=== PATIENT | male | born 1985 | race Two or more races ===

== ENCOUNTER 2017-01-28 09:43 | Inpatient (IN) | payer OTHER ==
[~2017-01-28] VITALS: Ht 167.6 cm; Wt 98.6 kg
--- NOTE | ~2017-01-28 | RESCARESUM ---
"PATIENT: SENA ZACARIAS | | [facility] UNIT #: [id number] | [address] AGE/SEX: 31 M : 87 | [address] | [place] [address] ADMIT/REG DATE: 01/28/17 | ROOM: [facility] LOC: [facility]TC | [facility] | Summary of Residential Care Primary Counselor: [facility] Date of Admission: 07/31/17 Date of Discharge: 02/04/17 Referral Source: probation Primary Care Provider Prior to Admission: None Admitting Diagnosis: F12.20 Cannabis Use Disorder, severe Discharge Diagnosis: F12.20 Cannabis Use Disorder, severe Goals Achieved: Client completed the Getting Started packet Continued Obstacles to Sobriety/Relapse Issues: Client left AMA Family Issues Addressed: None client left AMA Y Individual Therapy Y Group Therapy Y Educational Series on Substance Abuse N Parents/Significant Others Attended Family Program N Acute Medical Problems During the Course of Treatment N Transferred to Hospital During the Course of Treatment Y Accepting of Substance Abuse Problem N Non-accepting of Substance Abuse Problem N Required Psychological or Psychiatric Consultation During the Course of Treatment Completed AA Step # 0 During This Level of Care Significant Incidences During Treatment: Client left AMA Reason For Discharge: N Completed Residential [place] Goals and Ready For Next Level of Care Y Left Tx Against Medical Advice/Treatment Goals Not Complete N Completed Residential [place] Goals But Refusing Continuing Care Recommendations N Discharged Due to Noncompliance/Treatment Goals not Completed N Discharged Earlier Than Planned Due to: Continuing Care Plan/Recommendations: N Intensive Partial Care Y Sponsor N Partial Care Y AA Meetings/NA Meetings N Outpatient N Co-dependency Services N Therapeutic Community N [address] N Mental Health Therapy N Marriage Counseling N Other Specific Continuing Care Plan: It is recommended that client follow the initial PATIENT: SENA ZACARIAS | | [facility] UNIT #: [id number] | [address] AGE/SEX: 31 M : 87 | [address] | [place] [address] ADMIT/REG DATE: 01/28/17 | ROOM: [facility] LOC: ADTC | ADTC | Summary of Residential Care recommendations of completing residential treatment. PRIMARY COUNSELOR: Isha Long"
--- NOTE | 2017-01-28 15:50 | NUR ---
Individual Therapy: 1.0 hours, This session focused on orienting the client to how the program works. Client was advised he would have counseling sessions twice a week with his primary counselor, discussed family participation, discussed release forms, explained significant event forms, and room checks. Reviewed the initial treatment plan.
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
--- NOTE | 2017-01-28 16:07 | NUR ---
Family Note: Client does not want any family involved due to the family living in [place].
--- NOTE | 2017-01-28 16:25 | NUR ---
Relapse Prevention, 12/16 ration, 1.0 hours, Client attended and participated in relapse prevention education which focused on relapse triggers/issues.
--- NOTE | 2017-01-28 22:26 | NUR ---
TECH NOTE: Client attended Alumni meeting and on-site AA meeting. Client was checked into room but not seen by 1st day introductions done SE: 1st day
--- NOTE | 2017-01-28 22:56 | NUR ---
EDUCATION NOTE: 1HR lecture on Shame given by counselor
--- NOTE | 2017-01-29 04:45 | NUR ---
Bed note: Client was in bed with eyes closed and no distress at all bed checks.
--- NOTE | 2017-01-29 06:21 | NUR ---
ADMISSION NOTE Rights/Responsibilities: Copy given and explained to client. Signed and accepted by client. Client oriented to physical lay out of the ADTC unit, given Big Book and admission packet. A Matteo was assigned. Ori Srinivasan Client is a 31yr old male. Referred by probation. Came to [place] by taxi from [facility], lives in [place], [place]. DOC Cannabid, last used 01/25/17, 10 blunts. No allergies, No meds. No family participation in tx. Was searched no contraband found. Initial paperwork given and guidelines gone over. Doctor was notified.
--- NOTE | 2017-01-29 10:09 | NUR ---
Tech note: Client is working on Getting started and mtg with amanda.
--- NOTE | 2017-01-29 11:53 | NUR ---
AM GROUP .5 HR: Peers helped to ORIENT THIS CLIENT TO GROUP GUIDELINES, GOALS AND OBJECTIVES. Client identified his drug of choice as pot. He admitted that he has pending charges in [place] then got additional charges in [place] that he has to settle before he can go back and face the charges in [place]. Client shared about the heartbreak of packing up his kids stuff as he had to send them back to family in [place] to do treatment. Several clients had assignments to process. This generated a lot of feedback and different individuals sharing from their own experience. Various examples of behaviors and values compromised were addressed with much of the focus on values compromised, how kids become the innocent victims of this disease and how painful but necessary it is to have to look at the reality of those consequences. Client over-confident that he can blow off his legal issues but torn with guilt on how his children have been affected.
--- NOTE | 2017-01-29 12:47 | NUR ---
Education note: Client attended speaker Ian Vazquez
--- NOTE | 2017-01-29 16:01 | NUR ---
SPIRITUAL EDUCATION 1 HR. Topic today was on how addiction is a disease of body mind and spirit and how the Steps fit in treating the SPIRIT. We also talked about ways to spirituality, payoffs, and how spirituality is related to both addiction and recovery.
--- NOTE | 2017-01-29 18:28 | NUR ---
Education: 1 Hour. Client attended "Boundaries" lecture presented by staff.
--- NOTE | 2017-01-29 22:25 | NUR ---
Tech note : Client played pictionary for rec and attended an onsite NA meeting. SE: called kids
--- NOTE | 2017-01-30 05:20 | NUR ---
tech note: client was motionless in no distress at all bed checks.
--- NOTE | 2017-01-30 11:30 | NUR ---
AM GRP 1.5 HRS, Ratio 1:11/ Clt offered feedback to peers who shared thoughts and feelings. He stated he is struggling with being here, while his family is in [place] and if he returns, the only other people he knows use, and right now he's from his g/f.
--- NOTE | 2017-01-30 15:56 | NUR ---
step education/1 hr/ Focus was on step 6 and looking at character defects. Each person shared some questions and answers and identified what character defects they are ready to let go of and what ones they are not willing to let go of. This client participated.
--- NOTE | 2017-01-30 16:28 | NUR ---
Tech Note: Client participated in Spiritual Enrichment in the morning and went for an outdoor walk in the afternoon. Client stated that she is working on writing a Vent Letter.
--- NOTE | 2017-01-30 16:29 | NUR ---
Tech Note: Client participated in Spiritual Enrichment in the morning and went for an outdoor walk in the afternoon. Client stated that he is working on, "How to Get Started in Treatment."
--- NOTE | 2017-01-30 16:34 | NUR ---
Education 1 Hour: Client heard a presentaion on "Wellness in Recovery."
--- NOTE | 2017-01-30 23:08 | NUR ---
Tech note: Client worked on craft projects for the [employer] for rec and attended AA meeting SE:all day
--- NOTE | 2017-01-31 00:12 | NUR ---
Education note: Clients watched a movie on "my attitude' by Efrain Pride.
--- NOTE | 2017-01-31 04:56 | NUR ---
Bed note; client was motionlees, with eyes closed at all bed checks.
--- NOTE | 2017-01-31 11:30 | NUR ---
Group 1.5 hr/ 11:1 Clients all got into discussion about how they found spirituality or struggle with HP concepts and a peer shared GS packet. This client got mad about counselor mentioning homeless people can get help in [place] as he found a woman frozen and (recently? and may have trauma?) He did share how he has resentments with his dad, if he it wouldn't bother him and how now he is one to tell kids daily he loves them, his dad was never there for him.
--- NOTE | 2017-01-31 14:03 | NUR ---
PEER REVIEWS 1.25 HRS: Clt participated in peer reviews and took a risk to give open and honest feedback to those receiving a review.
--- NOTE | 2017-01-31 15:32 | NUR ---
Individual Therapy: 1.0 hours, This session focused on finishing up the review of clients BPS. Client also shared the chain of events that have led him to treatment. Client opend up about his past and the time he spent incarcerated. Client also shared about trying to help a homeless individual out and not being able to help her. Client talked about finding her in the park and she had passed from hypothermia. Client became very emotional about his past and this homeless person. It was recommended that client work with another therapist and do some EMDR. Client was ok with this.
--- NOTE | 2017-01-31 16:28 | NUR ---
Tech Note: Client went with group for outside walk and watched "Marijuana", by Jewel Pride, for education. Clt is working on Getting Started.
--- NOTE | 2017-01-31 23:53 | NUR ---
Tech Note: Client read guidelines with peers. Client watched tv. SE: Every single person at [facility]
--- NOTE | 2017-02-01 05:34 | NUR ---
Bed Note: Client was motionless with eyes closed at all bed checks.
--- NOTE | 2017-02-01 15:50 | NUR ---
Tech Note: Client working on Step 1.
--- NOTE | 2017-02-01 20:35 | NUR ---
Tech Note: Client played a game for rec. They also attended the A.A.Meeting at [facility] and [place]. SE: Client got to have some Dr. Schaffer today which he hasnt tasted in quite some time.
--- NOTE | 2017-02-02 05:32 | NUR ---
Bed Note: Client was motionless with eyes closed at all bed checks.
--- NOTE | 2017-02-02 15:36 | NUR ---
Tech Note: Client participated in Big Book Study. Client stated that he is working on Step One.
--- NOTE | 2017-02-02 23:36 | NUR ---
Client attended A.A.Panel and helped with community clean. SE: Having fun with [employer] about needing his phone.
--- NOTE | 2017-02-03 05:04 | NUR ---
Bed Note: Client was motionless with eyes closed at all bed checks.
--- NOTE | 2017-02-03 10:13 | NUR ---
Tech note: Client is working on Step 1
--- NOTE | 2017-02-03 14:38 | NUR ---
Education note: Client attended speaker for education Saad Leyva
--- NOTE | 2017-02-03 16:00 | NUR ---
RECOVERY 101 1 HR/ Clients all filled out list of 30 consequences from their use to help look at how each addictive chemical they ever used has caused problems and how minimizing can sabotage treatment. Discussed this and also learned about phases of recovery process from Denial to Acceptance & Surrender.
--- NOTE | 2017-02-03 20:10 | NUR ---
Crisis .5/Client shared a peer said something that he felt disrespected about and left recreation. He talked to me about his old behavior and howhe is tired of group home but has a lot to learn about dealing with disrespect and letting go of things we can't control.
--- NOTE | 2017-02-03 22:44 | NUR ---
TECH NOTE: Client played Catch Phrase in REC, and attended NA meeting. Talked to counselor after yelling and slamming the door during REC. Came and apologized to tech even though his behavior was not directed towards them. SE: Making "spread"
--- NOTE | 2017-02-03 23:59 | NUR ---
Education: 1 Hour. Client attended "Adult Children" presentation given by staff.
--- NOTE | 2017-02-04 05:24 | NUR ---
BED NOTE: Client was in bed, motionless with eyes closed all three bed checks.
--- NOTE | 2017-02-04 11:26 | NUR ---
A.MEula res group/ratio 1:10/ Group assignments shared were step one and feelings letters. This client related and shared he just wants to go home and not go to a [address].
--- NOTE | 2017-02-04 16:20 | NUR ---
Relapse Prevention; 1.0 hours; Client attended and actively participated in relapse prevention which focused on compulsive behaviors and relapse.
--- NOTE | 2017-02-04 16:32 | NUR ---
Tech Note: Client attended speaker meeting, presented by [employer], and Relapse Prevention education. Client is currently working on Step 1.
--- NOTE | 2017-02-04 23:24 | NUR ---
Education note: 1 hour lecture given by counselor on "Self Esteem"
--- NOTE | 2017-02-04 23:39 | NUR ---
Discharge Note Client came out of the AA meeting and said he wanted to leave. Someone in meeting had said something about his past. And he said he was not wanted here. We asked if he wanted to call his counselor or talk to program project manager and he said no. His room mate was pulled out of meeting to observe while he packed. He made a phone call, He signed AMA form and left with his belongings. Client left unit at 20:40
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
== END 2017-02-04 20:40 | disposition left against medical advice (07) | DRG 894 ==
LOC: ADTC 09:43
PROVIDERS: ADMIT Family Medicine
PROC: HZ43ZZZ Group Counseling for Substance Abuse Treatment, 12-Step (ICD-10-PCS; principal; 2017-01-28)
PROC: HZ34ZZZ Individual Counseling for Substance Abuse Treatment, Interpersonal (ICD-10-PCS; principal; 2017-01-28)
DX: F12.20 Cannabis dependence, uncomplicated (principal); E66.09 Other obesity due to excess calories; J20.9 Acute bronchitis, unspecified; R53.1 Weakness; F17.210 Nicotine dependence, cigarettes, uncomplicated; Z63.72 Alcoholism and drug addiction in family; Z65.3 Problems related to other legal circumstances

== ENCOUNTER 2017-02-12 09:21 | Inpatient (IN) | payer OTHER | END 2017-03-12 10:18 | disposition home or self-care (01) | DRG 895 | DX: F12.20 Cannabis dependence, uncomplicated (principal); E66.9 Obesity, unspecified; F17.210 Nicotine dependence, cigarettes, uncomplicated; Z63.72 Alcoholism and drug addiction in family; Z65.3 Problems related to other legal circumstances; Z59.0 Homelessness ==

== ENCOUNTER 2017-08-07 19:30 | Emergency (ER) | payer SELFPAY ==
--- NOTE | ~2017-08-07 | ER ---
ADMIT: 08/07/2017 RM/LOC: [facility] MR#: [id number] [address] [address] SENA ZACAR[address]AS[address] [place] [address] Emergency Room Report SEX: M AGE: 31 : 1985 DATE: 08/07/2017 ADDENDUM: This patient comes to the ER because he is having severe pain in the right ear. He has had it all day today. He states that at times the pain becomes very intense. On physical exam, his right ear is normal. There is no redness in the TM and the canal is clear. I did notice that he has widespread dental decay in both the upper and lower teeth on the right side. He is tender to percussion of all the teeth on the right lower side. I wrote a prescription for amoxicillin. He was given Toradol. He needs to follow up with a dentist. I also wrote him for [address] [place]. Please see my T-sheet. ARABELLA Herrera / David Natarajan MD / graciela JOB #: [id number] CC: David Natarajan MD, Attending Physician Cali Carmen MD, Family Physician
== END 2017-08-07 20:46 | disposition home or self-care (01) ==
LOC: ER 19:30
DX: K08.89 Other specified disorders of teeth and supporting structures (principal); F17.210 Nicotine dependence, cigarettes, uncomplicated